=== PATIENT | female | born 1945 | race African-American/Black ===

== ENCOUNTER → 2016-07-22 | Outpatient (CLI) | payer MEDICARE, BC | LOC: RAD 08:27 | PROVIDERS: ATTEND Internal Medicine | DX: E04.9 Nontoxic goiter, unspecified (principal) | CPT/HCPCS: 78014; A9516 ==

== ENCOUNTER → 2017-01-15 | Outpatient (CLI) | payer MEDICARE, BC ==
--- NOTE | 2017-01-15 10:18 | RADIOLOGY REPORT (SQ) ---
EXAM DESCRIPTION: CT FACIAL AREA WITHOUT COMPLETED DATE/TIME: 01/15/2017 10:00 am REASON FOR STUDY: CHRONIC SINUSITIS (J32.9) J32.9 CHRONIC SINUSITIS, UNSPECIFIED COMPARISON: None. TECHNIQUE: Noncontrasted images through the facial bones and orbits windowed for bone and soft tissu e. Additional coronal and sagittal reconstructed images reviewed. All images stored on PACS. All CT scanners at this facility use dose modulation, iterative reconstruction, and/or weight based d osing when appropriate to reduce radiation dose to as low as reasonably achievable (ALARA). [facility]: Dose Right [facility]: CareDose [facility]: Dose Right [facility]: Teradose 4D [facility]: [employer] RADIATION DOSE: 44.2 mGy. LIMITATIONS: None. FINDINGS: FACIAL BONES: No fracture or bone lesion. ORBITS: Intact. No fracture. Symmetric intact globes and retroorbital soft tissues. PARANASAL SINUSES: Clear. No significant mucosal thickening, mass or fluid. No nasal polyps. Maxill criselda sinus outlets are patent. SOFT TISSUES: No mass or edema. INFERIOR BRAIN: Moderate chronic bifrontal deep periventricular white matter disease. OTHER: No other significant finding. IMPRESSION: NO ACUTE FINDINGS. TECHNICAL DOCUMENTATION: JOB ID: [id number] Quality ID # [id number]: Final reports with documentation of one or more dose reduction techniques (e.g., Au tomated exposure control, adjustment of the mA and/or kV according to patient size, use of iterative reconstruction technique) 2010 [employer]- All Rights Reserved
== END ==
LOC: RAD 09:38
PROVIDERS: ATTEND Internal Medicine
DX: J32.9 Chronic sinusitis, unspecified (principal)
CPT/HCPCS: 70486

== ENCOUNTER 2017-03-31 15:47 | Inpatient (IN) | payer MEDICARE, BC ==
--- NOTE | 2017-03-31 15:56 | ER Document Report ---
ED Neuro Symptoms/Deficit - General Mode of Arrival: Ambulatory Information source: Patient TRAVEL OUTSIDE OF THE [place] IN LAST 30 DAYS: No <MICHELLE AVILA - Last Filed: 03/31/17 18:11> <KEITH ACKERMAN - Last Filed: 03/31/17 20:19> - General Stated Complaint: GENERAL WEAKNESS Time Seen by Provider: 03/31/17 15:48 Notes: Patient is a 71 year old female that presents to the emergency department today with complaints of altered mental status. at bedside states that she complained of "not feeling well" at 0900 and she went and lied down in bed and this was her last known well. states that he was in and out of the room while she slept but did not notice any abnormalities until he tried to speak to her and she would not answer him. EMS reports no movement on the right side and that her right leg was hanging off the bed when they arrived. denies a history of seizures. History is limited. (MICHELLE AVILA) - Related Data Allergies/Adverse Reactions: cephalexin [Cephalexin] Allergy (Intermediate, Verified 04/24/14 17:57) Hallucinations codeine [Codeine] Allergy (Intermediate, Verified 04/24/14 17:57) itching promethazine HCl [From Phenergan] Allergy (Intermediate, Verified 04/24/14 17:57 ) itching,anxiousness Home Medications: Current Home Medications Rivaroxaban [Xarelto] 20 mg PO DAILY 03/31/17 [History] Valsartan/Hydrochlorothiazide [Valsartan-Hctz 320-25 mg Tab] 1 tab PO DAILY [History] Past Medical History - General Information source: Patient - Social History Smoking Status: Never Smoker Cigarette use (# per day): No Frequency of alcohol use: None Drug Abuse: None Lives with: Family Family History: Reviewed & Not Pertinent - Past Medical History Cardiac Medical History: Reports: Hx Atrial Fibrillation, Hx Congestive Heart Failure, Hx Coronary Artery Disease, Hx Heart Attack - VTACH AND ON GOING AFIB, Hx Hypertension - DIOVAN, LASIX GI Medical History: Reports: Hx Diverticulitis Past Surgical History: Reports: Hx Cardiac Catheterization, Hx Hysterectomy, Hx Pacemaker - Immunizations Immunizations up to date: Yes Hx Diphtheria, Pertussis, Tetanus Vaccination: Yes <MICHELLE AVILA - Last Filed: 03/31/17 18:11> Review of Systems - Review of Systems -: Yes ROS unobtainable due to patient's medical condition <MICHELLE AVILA - Last Filed: 03/31/17 18:11> Physical Exam - Vital signs Interpretation: Hypertensive - General General appearance: Alert In distress: Moderate - Respiratory Respiratory status: No respiratory distress Breath sounds: Normal - Cardiovascular Rhythm: Regular - Abdominal Inspection: Normal Tenderness: Nontender - Extremities General upper extremity: Normal inspection. No: Normal ROM, Normal strength General lower extremity: Normal inspection. No: Normal ROM, Normal strength - Neurological Neuro grossly intact: No Cranial nerves: Facial palsy, Gaze palsy Motor strength normal: No: RUE, RLE - Skin Skin Temperature: Warm Skin Moisture: Dry Skin Color: Normal <KEITH ACKERMAN - Last Filed: 03/31/17 20:19> - Vital signs Vitals: Resp Pulse Ox 20 100 03/31/17 16:00 03/31/17 16:00 Course - Laboratory Result Diagrams: 03/31/17 16:05 03/31/17 16:05 <MICHELLE AVILA - Last Filed: 03/31/17 18:11> - Laboratory Result Diagrams: 03/31/17 16:05 03/31/17 16:05 - Diagnostic Test Radiology reviewed: Reports reviewed <KEITH ACKERMAN - Last Filed: 03/31/17 20:19> - Re-evaluation Re-evalutation: 03/31/17 Patient is a 71-year-old female who presents with a aphasia and a right-sided paresis. Patient had gone to sleep and was not seen by her for about 6 hours. When he woke her up and realized that she needed to come to the ER. Patient is unable to speak and has a left gaze palsy although she is able to look straight ahead. She cannot look to the right. Patient is unable to move her right upper or lower extremity at all. Symptoms have not changed since she has been in the emergency department. Due to the severity of the patient's symptoms and also that she is outside the window for lytics, she is not a candidate for alteplase. Patient was discussed with her primary care doctor, Dr. Gonzáles, and will be admitted to the [facility]. This is discussed at length with her . (KEITH ACKERMAN) - Vital Signs Vital signs: Temp Pulse Resp BP Pulse Ox 98.0 F 78 14 160/97 H 96 03/31/17 19:10 03/31/17 18:00 03/31/17 19:09 03/31/17 19:09 03/31/17 19:09 - Laboratory Laboratory results interpreted by me: 03/31/17 03/31/17 03/31/17 16:05 16:05 16:05 RDW 14.3 H Seg Neutrophils % 78.8 H PT 19.0 H APTT 37.5 H Chloride 110 H Est GFR (Non-Af Amer) 49 L Glucose 116 H Critical Care Note - Critical Care Note Total time excluding time spent on procedures (mins): 35 - Evaluation and management of stroke patient, multiple re-evaluations, coordination of admission , counseling of family <KEITH ACKERMAN - Last Filed: 03/31/17 20:19> Discharge <MICHELLE AVILA - Last Filed: 03/31/17 18:11> - Discharge Admitting Provider: [facility] Unit Admitted: [facility] <KEITH ACKERMAN - Last Filed: 03/31/17 20:19> - Discharge Clinical Impression: CVA (cerebral vascular accident) Qualifiers: CVA mechanism: unspecified Qualified Code(s): I63.9 - Cerebral infarction, unspecified Condition: Stable Disposition: ADMITTED INPATIENT Scribe Attestation: 03/31/17 20:17 I personally performed the services described in the documentation, reviewed and edited the documentation which was dictated to the scribe in my presence, and it accurately records my words and actions. (KEITH ACKERMAN) Scribe Documentation - Scribe Written by Caitie:: Caitie Owusu, 03/31/2017 182 acting as scribe for :: Mary <MICHELLE AVILA - Last Filed: 03/31/17 18:11> ED Alteplase Inc/Exc Criteria - Inclusion Criteria: 1: Patient presented to ED within 3 hours of acute ischemic stroke symptom onset ? -: No 2: Did baseline CT exclude intracranial hemorrhage and/or other risk factors? -: No 3: Is the age of the patient 18 years of age or greater? -: Yes : If any of the above questions are answered "NO" then stop, patient is not a candidate for Alteplase, : If all of the above questions are answered "YES" then continue with Exclusion Criteria. - Exclusion Criteria: 1: Is there evidence of intracranial hemorrhage on baseline CT? 2: Is there suspicion of subarachnoid hemorrhage (even if CT negative)? -: No 3: Is there a history of serious head trauma, recent previous stroke or [place] within 3 months? -: No 4: Does the patient have a clinical presentation consistent with [place] or post-[place] pericarditis? -: No 5: Is there history of intracranial hemorrhage? -: No 6: On repeated measurement is Systolic BP greater than 185mmHg or Diastolic BP greater that 110 mmHg and is aggressive treatment needed to reduce blood pressure to these limits (e.g. constant infusion of an anti-hypertensive)? -: No - went down on own 7: Did the patient awake with stroke symptoms? -: Yes 8: Has the patient had a lumbar puncture or an arterial puncture at a non- compressile site within 7 days? -: No 9: With in the last 14 days did the patient have surgery or major trauma? -: No 10: Is the patient or less than 2 weeks? -: No 11: Was there any active bleeding or acute trauma? -: No 12: Does the patient have intracranial neoplasm, arteriovenous malformation or aneurysm? -: No 13: Does the patient have abnormal glucose (less than 50 or greater than 400mg/ dl)? Record glucose in Comment. -: No 14: Patient has rapidly improving symptoms at the time Alteplase is to be Administered. -: No 15: Does the patient have any risks for bleeding, including but not limited to: a.: Current use of Coumadin with PT greater than 15 seconds or INR greater than 1.7. b.: Current use of Pradaxa (Dabigatran). c.: Heparin administereed within the past 48 hours and PTT elevated. d.: Platelet count less than 100,000/mm. e.: Major surgery or serious trauma within 14 days. f.: Gastrointestinal or gynecological urinary bleeding within 14 days. g.: Myocardial Infarction ([place]) within 3 months. -: No : If the answer to any of the above questions is "YES" then stop, the patient is not a candidate for Alteplase. : If the answer to all of the above questions is "NO" then the patient may be eligible for the Administration of Alteplase. : If the patient is noted to have seizure activity at onset of Stroke symptoms; Consult Neurologist for further evaluation. - The patient is: -: Included and is eligible to receive Alteplase. *Initiate bed placement at higher level of care* --: No Reviewd risks & benefits of thrombolytic therapy: I have reviewed the risks and benefits of thrombolytic therapy with the patient and/or his/her family. -: Excluded and not eligible to receive Alteplase for the above exclusions. --: Yes - presented 6-7 hours, woke up with symptoms -: Excluded and not eligible to receive Alteplase for other reasons (specify in comments): - Diagnosis of TIA: -: Patient presented with transient symptoms that are now resolved and no other neurologic findings are currently present. List symptoms in comments. -: No -: Patient is NOT a candidate for tPA. -: Yes -: ____(put name in comment) has been consulted for admission and continued evaluation of risk factor assessment. <KEITH ACKERMAN - Last Filed: 03/31/17 20:19> ED NIH Stroke Scale - NIH Stroke Scale When completed:: Before Alteplase *: 1. NIH scale should be completed with appropriate accompanying assessment tools. *: 2. The NIH should reflect what the patient is capable of doing and should not be coached by the clinician. 1a. Level of Consciousness: 0=Alert;keenly responsive -: 1=Drowsy -: 2=Obtunded -: 3=Coma/unresponsive or reflex to noxious stimuli. 1a. Responses: 1 1b. Orientation Questions: a. What month is it? -: b. How old are you? -: 0=Answers both questions correctly. -: 1=Answers one question correctly or patient is intubated or has orotracheal trauma. -: 2=Answers neither question correctly. 1b. Responses: 2 1c. Response to commands: a. Open and close eyes? -: b. Laboratory Apparatus Glass Blower and release hand? -: Credit is given despite weakness. Demonstration of task is permitted. Substitute command if hands cannot be used. -: 0=Performs both tasks correctly -: 1=Performs one task correctly -: 2=Performs neither task correctly 1c. Responses: 0 2. Gaze: Establish eye contact and instruct patient to "Follow my finger" -: 0=Normal -: 1=Partial gaze palsy. Gaze is abnormal in one or both eyes, but where forced deviation or total gaze paresis is not present. -: 2=Forced deviation or total gaze paresis. 2. Responses: 2 3. Visual Coffman: Sees fingers in all four quadrants. -: 0=No visual loss. -: 1=Partial hemianopsia. -: 2=Complete hemianopsia. -: 3=Bilateral hemianopsia (including Cortical blindness) 4. Facial Movement: Instruct patient to: -: a. Show me your teeth -: b. Raise your eyebrows -: c. Close your eyes -: d. Smile -: 0=Normal symmetrical movement -: 1=Minor paralysis (flattened nasolabial fold, asymmetry on smiling). -: 2=Partial paralysis (total or near total paralysis of lower face). -: 3=Complete paralysis of upper and lower face 4. Responses: 3 5. Motor functions (left arm): Alternate sides and extend each arm with palms down (90 degrees if sitting or 45 degrees for supine). -: 0=No drift;limb holds for full 10 seconds. -: 1=Drift; limb holds but drifts down before full 10 seconds, but does not hit bed. -: 2=Some effort against gravity; limb cannot get to or maintain position. -: 3=No effort against gravity; limb falls. -: 4=No movement. -: UN=Amputation, joint fusion, explain in comments. 5. Responses (left arm): 3 5. Motor Functions (right arm): Alternate sides and extend each arm with palms down (90 degrees if sitting or 45 degrees for supine). -: 0=No drift;limb holds for full 10 seconds. -: 1=Drift; limb holds but drifts down before full 10 seconds, but does not hit bed. -: 2=Some effort against gravity; limb cannot get to or maintain position. -: 3=No effort against gravity; limb falls. -: 4=No movement. -: UN=Amputation, joint fusion, explain in comments. 5. Responses (right arm): 4 6. Motor Functions (left leg): With patient lying supine, alternate sides and extend each leg (30 degrees always while supine). -: 0=No drift, leg holds position for full 5 seconds -: 1=Drift; leg falls before full 5 seconds but does not hit bed. -: 2=Some effort against gravity, leg falls to bed but some effort against gravity. -: 3=No effort against gravity, leg falls to bed immediately. -: 4=No movement. -: UN=Amputation, joint fusion; explain in comments. 6. Responses (left leg): 2 6. Motor Functions (right leg): With patient lying supine, alternate sides and extend each leg (30 degrees always while supine). -: 0=No drift, leg holds position for full 5 seconds -: 1=Drift; leg falls before full 5 seconds but does not hit bed. -: 2=Some effort against gravity, leg falls to bed but some effort against gravity. -: 3=No effort against gravity, leg falls to bed immediately. -: 4=No movement. -: UN=Amputation, joint fusion; explain in comments. 6. Responses (right leg): 4 7. Limb Ataxia: With eyes open instruct patient to: -: a. "Touch your finger to your nose". -: b. "Touch your heel to your gardner" -: 0=Absent -: 1=Present in one limb. -: 2=Present in two limbs. -: UN=Amputation or joint fusion; explain in comments. 7. Responses: 2 7. If ataxia present choose as appropriate: Right arm, Right leg 8. Sensory: Test sensation using pinprick or noxious stimuli. Test as many body parts as possible. -: 0=Normal;no sensory loss -: 1=Mile to moderate sensory loss (patient feels pin prick but is less sharp on affected side). -: 2=Severe or total sensory loss. 9. Best Language: Instruct patient to: -: a. "Describe what you see in this picture." -: b. "Name the items in this picture." -: c. "Read these sentences." -: 0=No aphasia, normal -: 1=Mild to moderate aphasia. -: 2=Severe aphasia -: 3=Mute, global aphasia, no usable speech or auditory comprehension. 9. Responses: 3 10. Articulation, Dysarthia: Instruct patient to: -: "Read these words" or "Repeat these words" -: 0=Normal -: 1=Mild to moderate; patient may slur some words but can be understood without difficulty. -: 2=Severe; patients speech so slurred as to be unintelligible in the absence of dysphasia. -: UN=Intubated or other physical barrier, explain in comments. 10. Responses: 2 11. Extinction or inattention: 0=No abnormality -: 1= Visual, tactile, auditory, spatial, or personal inattention or extinction to bilateral simulation in one or the sensory modalities. -: 2=Profound shravan-inattention or shravan-inattention to more than one modality; does not recognize own hand. Total Score: 28 <KEITH ACKERMAN - Last Filed: 03/31/17 20:19>
--- NOTE | 2017-03-31 16:15 | RADIOLOGY REPORT (SQ) ---
EXAM DESCRIPTION: CT HEAD WITHOUT COMPLETED DATE/TIME: 03/31/2017 3:57 pm REASON FOR STUDY: AMS, L gaze COMPARISON: 08/15/2015 TECHNIQUE: Axial images acquired through the brain without intravenous contrast. Images reviewed wi th bone, brain and subdural windows. Images stored on PACS. All CT scanners at this facility use dose modulation, iterative reconstruction, and/or weight based d osing when appropriate to reduce radiation dose to as low as reasonably achievable (ALARA). [facility]: Dose Right [facility]: CareDose [facility]: Dose Right [facility]: Teradose 4D [facility]: [employer] RADIATION DOSE: mGy. LIMITATIONS: None. FINDINGS: VENTRICLES: Prominent. CEREBRUM: No masses. No hemorrhage. No midline shift. Old lacunar infarct left basal ganglia. Are as of low density in the white matter most likely due to chronic micro-vascular ischemic change. No evidence for acute infarction. CEREBELLUM: No masses. No hemorrhage. No alteration of density. No evidence for acute infarction. EXTRAAXIAL SPACES: Mild age-related involutional change. No fluid collections. No masses. ORBITS AND GLOBE: No intra- or extraconal masses. Normal contour of globe without masses. CALVARIUM: No fracture. PARANASAL SINUSES: No fluid or mucosal thickening. SOFT TISSUES: No mass or hematoma. OTHER: No other significant finding. IMPRESSION: No acute abnormality brain. EVIDENCE OF ACUTE STROKE: NO. TECHNICAL DOCUMENTATION: JOB ID: [id number] Quality ID # [id number]: Final reports with documentation of one or more dose reduction techniques (e.g., Au tomated exposure control, adjustment of the mA and/or kV according to patient size, use of iterative reconstruction technique) 2010 [employer] All Rights Reserved
--- NOTE | 2017-03-31 16:15 | RADIOLOGY REPORT (SQ) ---
EXAM DESCRIPTION: CHEST SINGLE VIEW COMPLETED DATE/TIME: 03/31/2017 3:58 pm REASON FOR STUDY: AMS COMPARISON: August 2015 EXAM PARAMETERS: NUMBER OF VIEWS: One view. TECHNIQUE: Single frontal radiographic view of the chest acquired. RADIATION DOSE: NA LIMITATIONS: None. FINDINGS: LUNGS AND PLEURA: No opacities, masses or pneumothorax. No pleural effusion. MEDIASTINUM AND HILAR STRUCTURES: No masses. Contour normal. HEART AND VASCULAR STRUCTURES: Cardiac silhouette is enlarged and unchanged in configuration. BONES: No acute findings. HARDWARE: AICD device is unchanged in position. OTHER: No other significant finding. IMPRESSION: No significant interval change. No acute findings. Other findings as noted above TECHNICAL DOCUMENTATION: JOB ID: [id number]
[2017-03-31 16:25] LABS: ABSOLUTE EOSINOPHILS # (AUTO) 0.1 10^3/uL (0.0-0.6); ABSOLUTE LYMPHOCYTES (AUTO) 1.2 10^3/uL (0.5-4.7); ABSOLUTE MONOCYTES (AUTO) 0.4 10^3/uL (0.1-1.4); ABSOLUTE NEUT (AUTO) 6.5 10^3/uL (1.7-8.2); BASOPHILS % (AUTO) 0.5 % (0-2); EOSINOPHILS % (AUTO) 1.6 % (0-6); HEMATOCRIT 40.9 % (36.0-47.0); HEMOGLOBIN 13.9 g/dL (12.0-15.5); HGB HCT DIFFERENCE 0.8; LYMPHOCYTES % (AUTO) 14.7 % (13-45); MEAN CORPUSCULAR HEMOGLOBIN 29.8 pg (27.0-33.4); MEAN CORPUSCULAR VOLUME 88 fl (80-97); MONOCYTES % (AUTO) 4.4 % (3-13); RED BLOOD COUNT 4.66 10^6/uL (3.72-5.28); RED CELL DISTRIBUTION WIDTH 14.3 % (11.5-14.0); SEGMENTED NEUTROPHILS % (AUTO) 78.8 % (42-78); WHITE BLOOD COUNT 8.3 10^3/uL (4.0-10.5)
[2017-03-31 16:27] LABS: PARTIAL THROMBOPLASTIN TIME 37.5 SEC (23.5-35.8)
[2017-03-31 16:33] LABS: ALANINE AMINOTRANSFERASE 13 U/L (9-52); ALBUMIN 4.1 g/dL (3.5-5.0); ALKALINE PHOSPHATASE 96 U/L (38-126); ANION GAP 12 (5-19); ASPARTATE AMINO TRANSFERASE 19 U/L (14-36); BILIRUBIN,DIRECT 0.4 mg/dL (0.0-0.4); BILIRUBIN,TOTAL 0.7 mg/dL (0.2-1.3); BLOOD UREA NITROGEN 12 mg/dL (7-20); CALCIUM 9.9 mg/dL (8.4-10.2); CARBON DIOXIDE 22 mmol/L (22-30); CHLORIDE 110 mmol/L (98-107); CREATINE KINASE 75 U/L (30-135); CREATININE RESULT 1.09 mg/dL (0.52-1.25); GLUCOSE 116 mg/dL (75-110); POTASSIUM 4.2 mmol/L (3.6-5.0); SODIUM 143.5 mmol/L (137-145); TOTAL PROTEIN 7.9 g/dL (6.3-8.2)
[2017-03-31 16:45] LABS: CREATINE KINASE MB 1.79 ng/mL (<4.55)
[2017-03-31 17:01] LABS: TROPONIN I 0.046 ng/mL
--- NOTE | 2017-03-31 17:36 | EKG REPORT ---
SEVERITY:- ABNORMAL ECG - A-V DUAL-PACED COMPLEXES W/ SOME INHIBITION : Confirmed by: Bea Ochoa MD 31-Mar-2017 17:34:19
[2017-03-31 20:22] LABS: APPEARANCE,URINE CLEAR; BILIRUBIN,URINE NEGATIVE (NEGATIVE); GLUCOSE, URINE NEGATIVE (NEGATIVE); KETONES,URINE TRACE mg/dL (NEGATIVE); LEUKOCYTE ESTERASE,URINE NEGATIVE (NEGATIVE); NITRITE,URINE NEGATIVE (NEGATIVE); PROTEIN,URINE 30 mg/dL (NEGATIVE)
[2017-03-31] MEDS ORDERED: INFLUENZA ADLT QUAD (36MOS+) 2017-18 VAC 0.5 ML SYR IM PRN (20:50)
[2017-03-31] MEDS: ASPIRIN/DIPYRIDAMOLE 25-200 MG 1 CAP.SR CPMP.12HR PO SCH (21:50)
[2017-03-31] MEDS: HEPARIN SOD (PORCINE) 5,000 UNIT/ML 1 ML SYRINGE SUBCUT SCH (21:50)
[2017-04-01 00:52] LABS: CREATINE KINASE MB 1.37 ng/mL (<4.55); TROPONIN I 0.043 ng/mL
[2017-04-01] MEDS: HEPARIN SOD (PORCINE) 5,000 UNIT/ML 1 ML SYRINGE SUBCUT SCH ×3 (05:22→21:42)
[2017-04-01 07:08] LABS: CHOLESTEROL 188.89 mg/dL (0-200); CREATINE KINASE 72 U/L (30-135); Direct HDL 49 mg/dL (>40); TRIGLYCERIDES 60 mg/dL (<150)
[2017-04-01 07:18] LABS: DIRECT LDL 122 mg/dL (<100)
[2017-04-01 07:21] LABS: CREATINE KINASE MB 1.22 ng/mL (<4.55); TROPONIN I 0.048 ng/mL
[2017-04-01] MEDS: ASPIRIN/DIPYRIDAMOLE 25-200 MG 1 CAP.SR CPMP.12HR PO SCH ×2 (09:25→21:42)
--- NOTE | 2017-04-01 12:17 | RADIOLOGY REPORT (SQ) ---
EXAM DESCRIPTION: CAROTID DOPPLER COMPLETED DATE/TIME: 04/01/2017 12:04 pm REASON FOR STUDY: cva COMPARISON: None. TECHNIQUE: Grayscale ultrasound, Doppler velocity and spectra, and color Doppler images acquired of the extra-cranial carotid and vertebral arteries. Images stored on PACS. LIMITATIONS: None. FINDINGS: RIGHT CAROTID CCA Velocities: 65 cm/s ICA Velocities Peak systolic 80cm/s. End diastolic 23cm/s. Proximal ICA/CCA peak systolic ratio 1.2. Spectra normal. No significant plaque. LEFT CAROTID CCA Velocities: 83 cm/s ICA Velocities Peak systolic 74cm/s. End diastolic 12cm/s. Proximal ICA/CCA peak systolic ratio 0.9. Spectra normal. No significant plaque. VERTEBRAL ARTERIES: Antegrade flow. Normal waveforms. SUBCLAVIAN ARTERIES: No finding. OTHER: No other significant finding. IMPRESSION: NO HEMODYNAMICALLY SIGNIFICANT STENOSIS. COMMENT: Quality ID #[id number]: Velocity criteria are extrapolated from the diameter data as defined by t [place] Society of Radiologists in Ultrasound Consensus Conference. Radiology 2003: 229; 340-346. TECHNICAL DOCUMENTATION: JOB ID: [id number] [email or web address]- All Rights Reserved
[2017-04-01 14:31] LABS: CREATINE KINASE MB 1.15 ng/mL (<4.55); TROPONIN I 0.043 ng/mL
--- NOTE | 2017-04-01 19:59 | XCELERA REPORT ---
[address] [address] Transthoracic Echocardiogram Report Name: JONATHAN MILNER Age: 71 yrs Gender: Female : 1945 Patient Status: Inpatient Patient Location: [address] [place] [address] Study Date: 04/01/2017 10:00 AM Height: 64 in Weight: 190 lb BSA: 1.9 m2 Procedure: A complete two-dimensional transthoracic echocardiogram was performed (2D, M-mode, spectral and color flow Doppler). The study was technically adequate with some images being suboptimal in quality. Reason For Study: cva Ordering Physician: JACKELINE GUTIERREZ Performed By: Desiree Ramsey Interpretation Summary The left ventricular ejection fraction is normal. There is moderate to severe concentric left ventricular hypertrophy. The left ventricle is grossly normal size. Doppler measurements suggest reversible restrictive left ventricular relaxation, which is associated with grade III/IV or moderate diastolic dysfunction Wall motion cannot be accurately commented on, but no definite regional wall motion abnormalities noted. The right ventricular systolic function is normal. The left atrium is moderately dilated. The right atrium is normal in size There is a moderate amount of mitral regurgitation There is no mitral valve stenosis. No aortic regurgitation is present. There is no aortic valve stenosis There is a trace to mild amount of tricuspid regurgitation There is moderate to severe pulmonary hypertension by echo Right ventricular systolic pressure is estimated to be elevated at 50- 60mmHg. The aortic root is not well visualized. The inferior vena cava appeared normal and decreased < 50% with respiration (RAP 10-15 mmHg) Minimal pericardial effusion. MMode/2D Measurements & Calculations RVDd: 2.3 cm LVIDd: 2.7 cm FS: 24.5 % Ao root diam: 2.6 cm IVSd: 2.0 cm LVIDs: 2.0 cm EDV(Teich): 25.8 ml LVPWd: 1.7 cm ESV(Teich): 12.8 ml Ao root area: 5.2 cm2 EF(Teich): 50.6 % Doppler Measurements & Calculations MV E max nadia: MV dec slope: Ao V2 max: LV V1 max P.8 cm/sec 87.0 cm/sec 4.0 mmHg MV A max nadia: 898.7 cm/sec2 Ao max PG: LV V1 max: 37.3 cm/sec MV dec time: 3.0 mmHg 99.6 cm/sec MV E/A: 3.3 0.14 sec MR max nadia: PA V2 max: PI end-d nadia: TR max nadia: 553.7 cm/sec 67.0 cm/sec 115.3 cm/sec 363.0 cm/sec MR max PG: PA max P.8 mmHg TR max P.7 mmHg 52.7 mmHg Left Ventricle The left ventricle is grossly normal size. There is moderate to severe concentric left ventricular hypertrophy. The left ventricular ejection fraction is normal. Doppler measurements suggest reversible restrictive left ventricular relaxation, which is associated with grade III/IV or moderate diastolic dysfunction. Wall motion cannot be accurately commented on, but no definite regional wall motion abnormalities noted. Right Ventricle The right ventricle is grossly normal size. There is normal right ventricular wall thickness. The right ventricular systolic function is normal. Atria The right atrium is normal in size. The left atrium is moderately dilated. Interarterial septum not well visualized and not well dopplered. Cannot comment on ASD/PFO presence. Mitral Valve The mitral valve leaflets are sclerotic, but show no functional abnormalities. There is no mitral valve stenosis. There is a moderate amount of mitral regurgitation. Aortic Valve The aortic valve is not well visualized secondary to technical limitations. There is no aortic valve stenosis. No aortic regurgitation is present. Tricuspid Valve The tricuspid valve is not well visualized secondary to technical limitations. There is no tricuspid stenosis. There is a trace to mild amount of tricuspid regurgitation. There is moderate to severe pulmonary hypertension by echo. Right ventricular systolic pressure is estimated to be elevated at 50-60mmHg. Pulmonic Valve The pulmonic valve is not well visualized. Great Vessels The aortic root is not well visualized. The inferior vena cava appeared normal and decreased < 50% with respiration (RAP 10-15 mmHg). Effusions Minimal pericardial effusion. : JACKELINE GUTIERREZ > Tata Starr
--- NOTE | 2017-04-01 20:18 | EKG REPORT ---
SEVERITY:- ABNORMAL ECG - ATRIAL-VENTRICULAR DUAL-PACED RHYTHM : Confirmed by: Bea Ochoa MD 01-Apr-2017 20:17:36
--- NOTE | 2017-04-01 21:48 | PDOC H&P ---
History of Present Illness Admission Date/PCP: 03/31/17 22:58 JACKELINE GUTIERREZ MD History of Present Illness: JONATHAN MILNER is a 71 year old femaleShe is well-known to me she has a history of hypertension for many years, she also have cardiac arrhythmias, inducible ventricular tachycardia she is on anticoagulant, Xarelto status post AICD/pacemaker implantation. She was brought to the emergency room for evaluation of altered mental status by spouse. The history was that patient went to bed to rest because she was tired but subsequently she does not respond to verbal commands, the was worried he called rescue squad and she was transferred to the emergency room for evaluation. In the emergency room when she arrived she was found to have right-sided paralysis with left facial neglect initial CT head that was done was negative for any acute infarct.as expected . MRI brain could not be done because she has a pacemaker/ AICD implantation. She was admitted and managed according to stroke protocol , a 2D echo was done that showed moderate to severe concentric LVH, dilated left atrium grade 3 diastolic dysfunction of left ventricle pulmonary hypertension this suggest that her blood pressure is not well controlled.She is not a candidate for TPA treatment she presented outside the three-hour window of onset of symptoms of stroke.Clinically the stroke suggest a large stroke, the initial 72 hours is very critical in this patient because cerebral edema tends to occur within 772 hours of onset of stroke Past Medical History Cardiac Medical History: Reports: Atrial Fibrillation, Hypertension, Other - Cardiac dysrhythmia GI Medical History: Reports: Diverticulitis Hematology: Reports: Bleeding Tendencies - Angiodysplasia of the colon and small intestine Past Surgical History Past Surgical History: Reports: Cardiac Catheterization, Hysterectomy, Internal Defibrillator, Pacemaker Social History Lives with: Family Smoking Status: Never Smoker Frequency of Alcohol Use: None Hx Recreational Drug Use: No Drugs: None Hx Prescription Drug Abuse: No - Advance Directive Resuscitation Status: Full Code Family History Family History: Reviewed & Not Pertinent Parental Family History Reviewed: Yes Children Family History Reviewed: Yes Sibling(s) Family History Reviewed.: Yes Medication/Allergy Home Medications: Rivaroxaban [Xarelto] 20 mg PO DAILY 03/31/17 Valsartan/Hydrochlorothiazide [Valsartan-Hctz 320-25 mg Tab] 1 tab PO DAILY Allergies/Adverse Reactions: cephalexin [Cephalexin] Allergy (Intermediate, Verified 04/24/14 17:57) Hallucinations codeine [Codeine] Allergy (Intermediate, Verified 04/24/14 17:57) itching promethazine HCl [From Phenergan] Allergy (Intermediate, Verified 04/24/14 17:57 ) itching,anxiousness Review of Systems ROS unobtainable: Due to mental status Physical Exam Vital Signs: Temp Pulse Resp BP Pulse Ox 97.4 F 73 16 148/89 H 98 04/01/17 19:51 04/01/17 20:00 04/01/17 20:00 04/01/17 20:00 04/01/17 20:00 Intake & Output 03/31/17 04/01/17 04/02/17 06:59 06:59 06:59 Intake Total 6 6 Output Total 325 400 Balance -319 -394 Weight 78.3 kg Head exam: PRESENT: atraumatic, normocephalic, other - Left facial droop with left eye neglect Eye exam: PRESENT: conjunctiva pink, EOMI, PERRLA. ABSENT: scleral icterus Respiratory exam: PRESENT: clear to auscultation cally Cardiovascular exam: PRESENT: RRR, +S1, +S2 Vascular exam: PRESENT: normal capillary refill GI/Abdominal exam: PRESENT: soft Rectal exam: PRESENT: deferred Neurological exam: PRESENT: altered, motor sensory deficit - Right sided hemiplegia Results Laboratory Results: 04/01/17 06:43 04/01/17 04/01/17 05:59 06:43 Chloride Cancelled Triglycerides Cancelled 60 Cholesterol Cancelled 188.89 LDL Cholesterol Direct Cancelled 122 H VLDL Cholesterol Cancelled 12.0 HDL Cholesterol Cancelled 49 04/01/17 04/01/17 04/01/17 00:11 00:11 05:59 Creatine Kinase 71 Cancelled CK-MB (CK-2) 1.37 Troponin I 0.043 04/01/17 04/01/17 04/01/17 05:59 06:43 06:43 Creatine Kinase 72 CK-MB (CK-2) Cancelled 1.22 Troponin I Cancelled 0.048 04/01/17 04/01/17 13:11 13:11 Creatine Kinase 78 CK-MB (CK-2) 1.15 Troponin I 0.043 Impressions: Chest X-Ray 03/31/17 15:49 IMPRESSION: No significant interval change. No acute findings. Other findings as noted above Head CT 03/31/17 15:49 IMPRESSION: No acute abnormality brain. EVIDENCE OF ACUTE STROKE: NO. Carotid Doppler Study 04/01/17 00:00 IMPRESSION: NO HEMODYNAMICALLY SIGNIFICANT STENOSIS. Assessment & Plan - Diagnosis (1) Hemiplegia and hemiparesis following cerebral infarction affecting right dominant side Is this a current diagnosis for this admission?: Yes Plan: She has cerebral infarction with right-sided paralysis, the blood pressure is elevated she will not be treated at this point with antihypertensive drug unless the systolic blood pressure is more than or equal to 220 .she failed the initial swallow screen, she be kept n.p.o. for now. A repeat CT head will be done in 48 hours the plan of care was discussed with family (2) Hypertensive heart disease Qualifiers: Heart failure presence: without heart failure Qualified Code(s): I11.9 - Hypertensive heart disease without heart failure Is this a current diagnosis for this admission?: Yes (3) Diastolic heart failure Qualifiers: Heart failure chronicity: chronic Qualified Code(s): I50.32 - Chronic diastolic (congestive) heart failure Is this a current diagnosis for this admission?: Yes
[2017-04-02] MEDS: HEPARIN SOD (PORCINE) 5,000 UNIT/ML 1 ML SYRINGE SUBCUT SCH ×3 (05:41→21:23)
--- NOTE | 2017-04-02 08:46 | RADIOLOGY REPORT (SQ) ---
EXAM DESCRIPTION: CT HEAD WITHOUT COMPLETED DATE/TIME: 04/02/2017 8:32 am REASON FOR STUDY: CVA PROGRESSION COMPARISON: 03/31/2017 TECHNIQUE: Axial images acquired through the brain without intravenous contrast. Images reviewed wi th bone, brain and subdural windows. Images stored on PACS. All CT scanners at this facility use dose modulation, iterative reconstruction, and/or weight based d osing when appropriate to reduce radiation dose to as low as reasonably achievable (ALARA). [facility]: Dose Right [facility]: CareDose [facility]: Dose Right [facility]: Teradose 4D [facility]: [employer] RADIATION DOSE: Up-to-date CT equipment and radiation dose reduction techniques were employed. CTDIv ol: 49.0 mGy. DLP: 881 mGy-cm. mGy. LIMITATIONS: None. FINDINGS: VENTRICLES: There is displacement of the lateral ventricles from left to right with compre ssion of the left lateral ventricle. CEREBRUM: There has been interval development of a large area of relative decreased density involving the left cerebral hemisphere consistent with an area of cerebral infarction in a left MCA distributi on. Mass effect is seen with shift of the midline structures from left to right. No hemorrhagic comp onent is identified. CEREBELLUM: No masses. No hemorrhage. No alteration of density. No evidence for acute infarction. EXTRAAXIAL SPACES: No fluid collections. No masses. ORBITS AND GLOBE: No intra- or extraconal masses. Normal contour of globe without masses. CALVARIUM: No fracture. PARANASAL SINUSES: No fluid or mucosal thickening. SOFT TISSUES: No mass or hematoma. OTHER: No other significant finding. IMPRESSION: Interval development of a large area of relative decreased density as noted above consis tent with an area of cerebral infarction and a left MCA distribution. Mass effect is seen with compr ession of the left lateral ventricle and shift of the midline structures from left to right. No hemo rrhagic component is identified. Other findings as noted above. EVIDENCE OF ACUTE STROKE: NO. COMMENT: Quality ID # [id number]: Final reports with documentation of one or more dose reduction techniques (e.g., Automated exposure control, adjustment of the mA and/or kV according to patient size, use of iterative reconstruction technique) TECHNICAL DOCUMENTATION: JOB ID: [id number] [employer]- All Rights Reserved
[2017-04-02] MEDS: ASPIRIN/DIPYRIDAMOLE 25-200 MG 1 CAP.SR CPMP.12HR PO SCH ×2 (11:10→21:09)
[2017-04-02] MEDS: LABETALOL HCL INJ 20 MG/4 ML DISP.SYRIN IV PRN ×2 (12:22→21:09)
[2017-04-02 15:06] LABS: HEMATOCRIT 47.5 % (36.0-47.0); MEAN CORPUSCULAR HEMOGLOBIN 29.8 pg (27.0-33.4); MEAN CORPUSCULAR HGB CONC 34.7 g/dL (32.0-36.0); MEAN CORPUSCULAR VOLUME 86 fl (80-97); RED BLOOD COUNT 5.52 10^6/uL (3.72-5.28); RED CELL DISTRIBUTION WIDTH 13.7 % (11.5-14.0); WHITE BLOOD COUNT 14.6 10^3/uL (4.0-10.5)
[2017-04-02 15:10] LABS: HEMOGLOBIN 16.5 g/dL (12.0-15.5)
[2017-04-02 15:59] LABS: ANION GAP 18 (5-19); BLOOD UREA NITROGEN 18 mg/dL (7-20); CALCIUM 9.9 mg/dL (8.4-10.2); CARBON DIOXIDE 15 mmol/L (22-30); CHLORIDE 106 mmol/L (98-107); CREATININE RESULT 0.97 mg/dL (0.52-1.25); GLUCOSE 115 mg/dL (75-110); POTASSIUM 4.6 mmol/L (3.6-5.0); SODIUM 139.3 mmol/L (137-145)
--- NOTE | 2017-04-02 17:53 | PDOC PROGRESS REPORT ---
Subjective Progress Note for:: 04/02/17 Subjective:: She was seen by the bedside CAT scan of the head was done today it showed interval development of a large area of relative decreased density involving the left cerebral hemisphere consistent with an area of cerebral infarction in the left MCA territory/distribution mass-effect is seen with shift of the midline structures from left to right there is no hemorrhagic component identified. This finding was discussed with the family including his spouse and daughter, she has a living will, she be made a DNR status, prognosis is very poor in this patient Physical Exam Vital Signs: Temp Pulse Resp BP Pulse Ox 97.6 F 86 18 159/121 H 97 04/02/17 16:10 04/02/17 16:10 04/02/17 16:10 04/02/17 16:10 04/02/17 16:10 Intake & Output 04/01/17 04/02/17 04/03/17 06:59 06:59 06:59 Intake Total 6 6 Output Total 325 950 200 Balance -319 -944 -200 Weight 78.3 kg 81.3 kg 81.3 kg Eye exam: PRESENT: other - The pupil is medium-sized Mouth exam: PRESENT: moist, tongue midline Neck exam: PRESENT: full ROM Respiratory exam: PRESENT: clear to auscultation cally Cardiovascular exam: PRESENT: RRR, +S1, +S2 Vascular exam: PRESENT: normal capillary refill GI/Abdominal exam: PRESENT: soft Rectal exam: PRESENT: deferred Neurological exam: PRESENT: altered, motor sensory deficit - There is right sided hemiplegia Skin exam: PRESENT: dry, intact, warm Results Laboratory Results: 04/02/17 14:57 04/02/17 15:40 04/02/17 04/02/17 04/02/17 14:57 14:57 15:40 WBC 14.6 H RBC 5.52 H Hgb 16.5 H D Hct 47.5 H MCV 86 MCH 29.8 MCHC 34.7 RDW 13.7 Plt Count 188 Sodium Cancelled 139.3 Potassium Cancelled 4.6 Chloride Cancelled 106 Carbon Dioxide Cancelled 15 L Anion Gap Cancelled 18 BUN Cancelled 18 Creatinine Cancelled 0.97 Est GFR ( Amer) Cancelled > 60 Est GFR (Non-Af Amer) Cancelled 57 L Glucose Cancelled 115 H Calcium Cancelled 9.9 04/01/17 04/01/1704/01/17 00:11 00:11 05:59 Creatine Kinase 71 Cancelled CK-MB (CK-2) 1.37 Troponin I 0.043 04/01/17 04/01/17 04/01/17 05:59 06:43 06:43 Creatine Kinase 72 CK-MB (CK-2) Cancelled 1.22 Troponin I Cancelled 0.048 04/01/17 04/01/17 13:11 13:11 Creatine Kinase 78 CK-MB (CK-2) 1.15 Troponin I 0.043 Impressions: Chest X-Ray 03/31/17 15:49 IMPRESSION: No significant interval change. No acute findings. Other findings as noted above Carotid Doppler Study 04/01/17 00:00 IMPRESSION: NO HEMODYNAMICALLY SIGNIFICANT STENOSIS. Head CT 04/02/17 00:00 IMPRESSION: Interval development of a large area of relative decreased density as noted above consistent with an area of cerebral infarction and a left MCA distribution. Mass effect is seen with compression of the left lateral ventricle and shift of the midline structures from left to right. No hemorrhagic component is identified. Other findings as noted above. EVIDENCE OF ACUTE STROKE: NO. Assessment & Plan - Diagnosis (1) Left acute arterial ischemic stroke, MCA (middle cerebral artery) Is this a current diagnosis for this admission?: Yes Plan: She has a large left acute MCA infarct with mass-effect, very poor prognosis, tube feeding is not an option. (2) Hemiplegia and hemiparesis following cerebral infarction affecting right dominant side Is this a current diagnosis for this admission?: Yes (3) Hypertensive heart disease Qualifiers: Heart failure presence: without heart failure Qualified Code(s): I11.9 - Hypertensive heart disease without heart failure Is this a current diagnosis for this admission?: Yes (4) Diastolic heart failure Qualifiers: Heart failure chronicity: chronic Qualified Code(s): I50.32 - Chronic diastolic (congestive) heart failure Is this a current diagnosis for this admission?: Yes
[2017-04-03] MEDS: LABETALOL HCL INJ 20 MG/4 ML DISP.SYRIN IV PRN ×3 (03:42→22:08)
[2017-04-03] MEDS: HEPARIN SOD (PORCINE) 5,000 UNIT/ML 1 ML SYRINGE SUBCUT SCH ×3 (05:57→22:08)
[2017-04-03] MEDS: ASPIRIN/DIPYRIDAMOLE 25-200 MG 1 CAP.SR CPMP.12HR PO SCH ×2 (09:09→22:41)
--- NOTE | 2017-04-03 09:55 | PDOC PROGRESS REPORT ---
Subjective Progress Note for:: 04/03/17 Subjective:: Patient is currently doing same. Patient is unresponsive. Patients came with the MCA stroke with the midline shift of the brain. Patient's spouse and the daughters and the bedside discussed with the poor prognosis patient's currently is a DNR and DNI Physical Exam Vital Signs: Temp Pulse Resp BP Pulse Ox 99.2 F 95 22 H 210/104 H 95 04/03/17 07:43 04/03/17 07:43 04/03/17 04:00 04/03/17 04:00 04/03/17 07:43 Intake & Output 04/02/17 04/03/17 04/04/17 06:59 06:59 06:59 Intake Total 6 21 Output Total 950 425 Balance -944 -404 Weight 81.3 kg 80.7 kg Physical Exam: Patient is not responding General appearance: PRESENT: no acute distress Head exam: PRESENT: normocephalic Eye exam: PRESENT: PERRLA Neck exam: ABSENT: JVD Respiratory exam: PRESENT: clear to auscultation cally Cardiovascular exam: PRESENT: +S1, +S2 GI/Abdominal exam: PRESENT: normal bowel sounds, soft Extremities exam: ABSENT: pedal edema Neurological exam: PRESENT: altered Additional comments: Able to do the full exam because of not responding Results Laboratory Results: 04/02/17 14:57 04/02/17 15:40 04/02/17 04/02/17 04/02/17 14:57 14:57 15:40 WBC 14.6 H RBC 5.52 H Hgb 16.5 H D Hct 47.5 H MCV 86 MCH 29.8 MCHC 34.7 RDW 13.7 Plt Count 188 Sodium Cancelled 139.3 Potassium Cancelled 4.6 Chloride Cancelled 106 Carbon Dioxide Cancelled 15 L Anion Gap Cancelled 18 BUN Cancelled 18 Creatinine Cancelled 0.97 Est GFR ( Amer) Cancelled > 60 Est GFR (Non-Af Amer) Cancelled 57 L Glucose Cancelled 115 H Calcium Cancelled 9.9 04/01/17 04/01/17 04/01/17 00:11 00:11 05:59 Creatine Kinase 71 Cancelled CK-MB (CK-2) 1.37 Troponin I 0.043 04/01/17 04/01/17 04/01/17 05:59 06:43 06:43 Creatine Kinase 72 CK-MB (CK-2) Cancelled 1.22 Troponin I Cancelled 0.048 04/01/17 04/01/17 13:11 13:11 Creatine Kinase 78 CK-MB (CK-2) 1.15 Troponin I 0.043 Impressions: Chest X-Ray 03/31/17 15:49 IMPRESSION: No significant interval change. No acute findings. Other findings as noted above Carotid Doppler Study 04/01/17 00:00 IMPRESSION: NO HEMODYNAMICALLY SIGNIFICANT STENOSIS. Head CT 04/02/17 00:00 IMPRESSION: Interval development of a large area of relative decreased density as noted above consistent with an area of cerebral infarction and a left MCA distribution. Mass effect is seen with compression of the left lateral ventricle and shift of the midline structures from left to right. No hemorrhagic component is identified. Other findings as noted above. EVIDENCE OF ACUTE STROKE: NO. Assessment & Plan - Diagnosis (1) CVA (cerebral vascular accident) Qualifiers: CVA mechanism: unspecified Qualified Code(s): I63.9 - Cerebral infarction, unspecified Is this a current diagnosis for this admission?: Yes Plan: With the patient have a brain swelling in the midline sift continue supportive measurements. Discussed with the patient's family patient is currently a DNR/ DNI will repeat the CT of the head in the morning (2) Hemiplegia and hemiparesis following cerebral infarction affecting right dominant side Is this a current diagnosis for this admission?: Yes (3) Hypertensive heart disease Qualifiers: Heart failure presence: without heart failure Qualified Code(s): I11.9 - Hypertensive heart disease without heart failure Is this a current diagnosis for this admission?: Yes Plan: Continues to as needed labetalol - Time Time Spent with patient: 15-24 minutes Medications reviewed and adjusted accordingly: Yes Anticipated discharge: Other Within: Other - Inpatient Certification Medical Necessity: Need Close Monitoring Due to Risk of Patient Decompensation Post Hospital Care: D/C 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
[2017-04-04] MEDS: HEPARIN SOD (PORCINE) 5,000 UNIT/ML 1 ML SYRINGE SUBCUT SCH ×3 (05:18→22:16)
--- NOTE | 2017-04-04 09:20 | RADIOLOGY REPORT (SQ) ---
EXAM DESCRIPTION: CT HEAD WITHOUT COMPLETED DATE/TIME: 04/04/2017 8:39 am REASON FOR STUDY: stroke COMPARISON: 04/02/2017, 03/31/2017, 08/15/2015 CT brain TECHNIQUE: Axial images acquired through the brain without intravenous contrast. Images reviewed wi th bone, brain and subdural windows. Images stored on PACS. All CT scanners at this facility use dose modulation, iterative reconstruction, and/or weight based d osing when appropriate to reduce radiation dose to as low as reasonably achievable (ALARA). [facility]: Dose Right [facility]: CareDose [facility]: Dose Right [facility]: Teradose 4D [facility]: [employer] RADIATION DOSE: Up-to-date CT equipment and radiation dose reduction techniques were employed. CTDIv ol: 64.6 mGy. DLP: 1163 mGy-cm. mGy. LIMITATIONS: None. FINDINGS: A large left MCA distribution acute nonhemorrhagic infarct is present, with a large area o f low attenuation throughout the left frontal and temporal lobes. Dense left MCA on axial image 16. No hemorrhagic transformation. There is increasing mass effect, with [id number] subfalcine shift of 15 mm. Entrapment of the rig ht lateral ventricle, with dilatation of the right lateral ventricle temporal horn. There is now left uncal herniation of the temporal lobe flattening the leftward aspect of the brainst em. A small right occipital nonhemorrhagic infarct is now present on axial image 18. Paranasal sinuses, orbits, calvarium unremarkable. This report was communicated to Dr. Infante, 0910 hours, 04/04/2017. IMPRESSION: Increasing mass effect from large left MCA distribution nonhemorrhagic infarct. Evidenc e of entrapment right lateral ventricle. Left uncal herniation. EVIDENCE OF ACUTE STROKE: NO. COMMENT: Quality ID # [id number]: Final reports with documentation of one or more dose reduction techniques (e.g., Automated exposure control, adjustment of the mA and/or kV according to patient size, use of iterative reconstruction technique) TECHNICAL DOCUMENTATION: JOB ID: [id number]- All Rights Reserved
[2017-04-04] MEDS: ASPIRIN/DIPYRIDAMOLE 25-200 MG 1 CAP.SR CPMP.12HR PO SCH ×2 (09:35→23:09)
--- NOTE | 2017-04-04 13:45 | PDOC PROGRESS REPORT ---
Subjective Progress Note for:: 04/04/17 Subjective:: Patient is currently doing same. Patient's CT scan of the head is more worsening with the brain swelling and midline shift. Clinically patient is not responding. Discussed with the patient's family very extensively in the room regarding the CT scan finding and poor prognosis Physical Exam Vital Signs: Temp Pulse Resp BP Pulse Ox 99.3 F 84 22 H 158/137 H 96 04/04/17 07:56 04/04/17 07:56 04/04/17 04:24 04/04/17 07:56 04/04/17 07:56 Intake & Output 04/03/17 04/04/17 04/05/17 06:59 06:59 06:59 Intake Total 21 50 Output Total 425 325 Balance -404 -275 Weight 80.7 kg 80.5 kg Physical Exam: Currently not responding General appearance: PRESENT: no acute distress Head exam: PRESENT: normocephalic Mouth exam: PRESENT: dry mucosa Neck exam: ABSENT: JVD Respiratory exam: PRESENT: clear to auscultation cally Cardiovascular exam: PRESENT: +S1, +S2 GI/Abdominal exam: PRESENT: normal bowel sounds, soft Extremities exam: ABSENT: pedal edema Neurological exam: PRESENT: altered Results Laboratory Results: 04/02/17 14:57 04/02/17 15:40 04/01/17 04/01/17 04/01/17 00:11 00:11 05:59 Creatine Kinase 71 Cancelled CK-MB (CK-2) 1.37 Troponin I 0.043 04/01/17 04/01/17 04/01/17 05:59 06:43 06:43 Creatine Kinase 72 CK-MB (CK-2) Cancelled 1.22 Troponin I Cancelled 0.048 04/01/17 04/01/17 13:11 13:11 Creatine Kinase 78 CK-MB (CK-2) 1.15 Troponin I 0.043 Impressions: Chest X-Ray 03/31/17 15:49 IMPRESSION: No significant interval change. No acute findings. Other findings as noted above Carotid Doppler Study 04/01/17 00:00 IMPRESSION: NO HEMODYNAMICALLY SIGNIFICANT STENOSIS. Head CT 04/04/17 08:00 IMPRESSION: Increasing mass effect from large left MCA distribution nonhemorrhagic infarct. Evidence of entrapment right lateral ventricle. Left uncal herniation. EVIDENCE OF ACUTE STROKE: NO. Assessment & Plan - Diagnosis (1) CVA (cerebral vascular accident) Qualifiers: CVA mechanism: unspecified Qualified Code(s): I63.9 - Cerebral infarction, unspecified Is this a current diagnosis for this admission?: Yes Plan: With the recent CT scan today more worsening the symptoms discussed with the family about the patient's current conditions with a poor prognosis will order the EEG in the morning for the looking for the brain activity and possible comfort care (2) Hemiplegia and hemiparesis following cerebral infarction affecting right dominant side Is this a current diagnosis for this admission?: Yes (3) Hypertensive heart disease Qualifiers: Heart failure presence: without heart failure Qualified Code(s): I11.9 - Hypertensive heart disease without heart failure Is this a current diagnosis for this admission?: Yes Plan: Continues to as needed labetalol - Time Time Spent with patient: 15-24 minutes Medications reviewed and adjusted accordingly: Yes Anticipated discharge: Other Within: Other - Inpatient Certification Medical Necessity: Need Close Monitoring Due to Risk of Patient Decompensation Post Hospital Care: D/C [employer] Documentation - Plan Summary Plan Summary: We will order the EEG for the brain activity continues current supportive treatments very extensive discussed with the patient and all the other family and discuss about all the CT scan finding patient probably put the comfort care after the EEG
[2017-04-05] MEDS: HEPARIN SOD (PORCINE) 5,000 UNIT/ML 1 ML SYRINGE SUBCUT SCH ×3 (05:46→22:29)
[2017-04-05] MEDS: ASPIRIN/DIPYRIDAMOLE 25-200 MG 1 CAP.SR CPMP.12HR PO SCH ×2 (09:08→22:31)
--- NOTE | 2017-04-05 17:52 | PDOC PROGRESS REPORT ---
Subjective Progress Note for:: 04/05/17 Subjective:: Patient is unresponsive, she sustained a large left MCA distribution acute non- hemorrhagic infarct with a large area of low attenuation throughout the left frontal and temporal lobe. There is increasing mass-effect with [id number] shift. Entrapment of the right lateral ventricle with dilation of the right lateral ventricle temporal horn. There is now left uncal herniation of the temporal lobe flattening the left aspect of the brainstem. There is a small right occipital non-hemorrhagic infarct. EEG was done today, results pending I explained to family about the findings of the CAT scan the prognosis is extremely poor I recommend comfort care or hospice care once EEG results are available. Physical Exam Vital Signs: Temp Pulse Resp BP Pulse Ox 99.1 F 105 H 30 H 158/119 H 91 L 04/05/17 15:59 04/05/17 15:59 04/05/17 15:59 04/05/17 15:59 04/05/17 15:59 Intake & Output 04/04/17 04/05/17 04/06/17 06:59 06:59 06:59 Intake Total 50 0 Output Total 325 425 Balance -275 -425 Weight 80.5 kg 79.2 kg General appearance: PRESENT: other - Unresponsive Eye exam: PRESENT: other - The pupil is mid dilated Respiratory exam: PRESENT: clear to auscultation cally Cardiovascular exam: PRESENT: +S1, +S2 Neurological exam: PRESENT: other - Unresponsive, right-sided paralysis Results Laboratory Results: 04/02/17 14:57 04/02/17 15:40 04/01/17 04/01/17 04/01/17 00:11 00:11 05:59 Creatine Kinase 71 Cancelled CK-MB (CK-2) 1.37 Troponin I 0.043 04/01/17 04/01/17 04/01/17 05:59 06:43 06:43 Creatine Kinase 72 CK-MB (CK-2) Cancelled 1.22 Troponin I Cancelled 0.048 04/01/17 04/01/17 13:11 13:11 Creatine Kinase 78 CK-MB (CK-2) 1.15 Troponin I 0.043 Impressions: Chest X-Ray 03/31/17 15:49 IMPRESSION: No significant interval change. No acute findings. Other findings as noted above Carotid Doppler Study 04/01/17 00:00 IMPRESSION: NO HEMODYNAMICALLY SIGNIFICANT STENOSIS. Head CT 04/04/17 08:00 IMPRESSION: Increasing mass effect from large left MCA distribution nonhemorrhagic infarct. Evidence of entrapment right lateral ventricle. Left uncal herniation. EVIDENCE OF ACUTE STROKE: NO. Assessment & Plan - Diagnosis (1) Left acute arterial ischemic stroke, MCA (middle cerebral artery) Is this a current diagnosis for this admission?: Yes (2) Hemiplegia and hemiparesis following cerebral infarction affecting right dominant side Is this a current diagnosis for this admission?: Yes (3) Hypertensive heart disease Qualifiers: Heart failure presence: without heart failure Qualified Code(s): I11.9 - Hypertensive heart disease without heart failure Is this a current diagnosis for this admission?: Yes (4) Diastolic heart failure Qualifiers: Heart failure chronicity: chronic Qualified Code(s): I50.32 - Chronic diastolic (congestive) heart failure Is this a current diagnosis for this admission?: Yes (5) Raised intracranial pressure Is this a current diagnosis for this admission?: Yes
[2017-04-06] MEDS: HEPARIN SOD (PORCINE) 5,000 UNIT/ML 1 ML SYRINGE SUBCUT SCH ×3 (05:59→21:20)
[2017-04-06] MEDS: ASPIRIN/DIPYRIDAMOLE 25-200 MG 1 CAP.SR CPMP.12HR PO SCH ×2 (09:24→21:20)
--- NOTE | 2017-04-06 15:51 | EEG PRO FEE REPORT ---
EEG INTERPRETATION PATIENT NAME: JONATHAN MILNER ROOM#: [id number] ORDER#: [id number] DATE OF STUDY: 04/05/2017 : 1945 REFERRING MD: GRISEL BAPTISTE M.D. DIAGNOSIS: CVA REPORT The background activity consists anywhere from theta to almost near range alpha at times and some super imposed motion artifact again there is a good bit of that. IMPRESSION The record is symmetrical and definitely shows brain wave activity bilaterally all be it somewhat slow at times; indicative of widespread cerebral dysfunction such as from a toxic or metabolic or other generalized cause of cerebral damage. INTERPRETING PHYSICIAN: THI GREER M.D. /: MTEFFT TT: [id number] ID: [id number] /: [id number] TD: [id number] JOB: [id number] cc:Yola TREJO M.D. SWETANG PATEL, M.D. >
--- NOTE | 2017-04-06 19:06 | PDOC PROGRESS REPORT ---
Subjective Progress Note for:: 04/06/17 Subjective:: Patient remained unresponsive, EEG showed minimal brain activity, results discussed with family the next plan of care is hospice Physical Exam Vital Signs: Temp Pulse Resp BP Pulse Ox 99.7 F 79 20 156/88 H 98 04/06/17 16:00 04/06/17 16:00 04/06/17 16:00 04/06/17 16:00 04/06/17 16:00 Intake & Output 04/05/17 04/06/17 04/07/17 06:59 06:59 06:59 Intake Total 0 15 0 Output Total 425 50 Balance -425 15 -50 Weight 79.2 kg 78.6 kg Head exam: PRESENT: other - Unresponsive Respiratory exam: PRESENT: clear to auscultation cally Cardiovascular exam: PRESENT: +S1, +S2 Results Laboratory Results: 04/02/17 14:57 04/02/17 15:40 04/01/17 04/01/17 04/01/17 00:11 00:11 05:59 Creatine Kinase 71 Cancelled CK-MB (CK-2) 1.37 Troponin I 0.043 04/01/17 04/01/17 04/01/17 05:59 06:43 06:43 Creatine Kinase 72 CK-MB (CK-2) Cancelled 1.22 Troponin I Cancelled 0.048 04/01/17 04/01/17 13:11 13:11 Creatine Kinase 78 CK-MB (CK-2) 1.15 Troponin I 0.043 Impressions: Chest X-Ray 03/31/17 15:49 IMPRESSION: No significant interval change. No acute findings. Other findings as noted above Carotid Doppler Study 04/01/17 00:00 IMPRESSION: NO HEMODYNAMICALLY SIGNIFICANT STENOSIS. Head CT 04/04/17 08:00 IMPRESSION: Increasing mass effect from large left MCA distribution nonhemorrhagic infarct. Evidence of entrapment right lateral ventricle. Left uncal herniation. EVIDENCE OF ACUTE STROKE: NO. Assessment & Plan - Diagnosis (1) Left acute arterial ischemic stroke, MCA (middle cerebral artery) Is this a current diagnosis for this admission?: Yes Plan: She has a large stroke, she remained unresponsive EEG showed minimal brain activity, hospice consultation will be obtained, prognosis is extremely poor (2) Hemiplegia and hemiparesis following cerebral infarction affecting right dominant side Is this a current diagnosis for this admission?: Yes (3) Hypertensive heart disease Qualifiers: Heart failure presence: without heart failure Qualified Code(s): I11.9 - Hypertensive heart disease without heart failure Is this a current diagnosis for this admission?: Yes (4) Diastolic heart failure Qualifiers: Heart failure chronicity: chronic Qualified Code(s): I50.32 - Chronic diastolic (congestive) heart failure Is this a current diagnosis for this admission?: Yes (5) Raised intracranial pressure Is this a current diagnosis for this admission?: Yes
[2017-04-07] MEDS: HEPARIN SOD (PORCINE) 5,000 UNIT/ML 1 ML SYRINGE SUBCUT SCH ×3 (05:46→22:03)
[2017-04-07] MEDS: ASPIRIN/DIPYRIDAMOLE 25-200 MG 1 CAP.SR CPMP.12HR PO SCH ×2 (10:05→22:03)
--- NOTE | 2017-04-07 16:16 | PDOC PROGRESS REPORT ---
Subjective Progress Note for:: 04/07/17 Subjective:: Patient was seen by the bedside she remains unresponsive, she was seen by hospice nurse, it was felt that she is not safe to be transferred because there is a chance she could enroute, the family does not want to take that chances they preferred she dies in the hospital. She will be downgraded to medical floor and made comfort care measures. Physical Exam Vital Signs: Temp Pulse Resp BP Pulse Ox 99.4 F 90 24 H 169/113 H 96 04/07/17 15:29 04/07/17 15:29 04/07/17 15:29 04/07/17 15:29 04/07/17 15:29 Intake & Output 04/06/17 04/07/17 04/08/17 06:59 06:59 06:59 Intake Total 15 0 Output Total 170 200 Balance 15 -170 -200 Weight 78.6 kg 77.6 kg Results Laboratory Results: 04/02/17 14:57 04/02/17 15:40 04/01/17 04/01/17 04/01/17 00:11 00:11 05:59 Creatine Kinase 71 Cancelled CK-MB (CK-2) 1.37 Troponin I 0.043 04/01/17 04/01/17 04/01/17 05:59 06:43 06:43 Creatine Kinase 72 CK-MB (CK-2) Cancelled 1.22 Troponin I Cancelled 0.048 04/01/17 04/01/17 13:11 13:11 Creatine Kinase 78 CK-MB (CK-2) 1.15 Troponin I 0.043 Impressions: Chest X-Ray 03/31/17 15:49 IMPRESSION: No significant interval change. No acute findings. Other findings as noted above Carotid Doppler Study 04/01/17 00:00 IMPRESSION: NO HEMODYNAMICALLY SIGNIFICANT STENOSIS. Head CT 04/04/17 08:00 IMPRESSION: Increasing mass effect from large left MCA distribution nonhemorrhagic infarct. Evidence of entrapment right lateral ventricle. Left uncal herniation. EVIDENCE OF ACUTE STROKE: NO. Assessment & Plan - Diagnosis (1) Left acute arterial ischemic stroke, MCA (middle cerebral artery) Is this a current diagnosis for this admission?: Yes (2) Hemiplegia and hemiparesis following cerebral infarction affecting right dominant side Is this a current diagnosis for this admission?: Yes (3) Hypertensive heart disease Qualifiers: Heart failure presence: without heart failure Qualified Code(s): I11.9 - Hypertensive heart disease without heart failure Is this a current diagnosis for this admission?: Yes (4) Diastolic heart failure Qualifiers: Heart failure chronicity: chronic Qualified Code(s): I50.32 - Chronic diastolic (congestive) heart failure Is this a current diagnosis for this admission?: Yes (5) Raised intracranial pressure Is this a current diagnosis for this admission?: Yes
[2017-04-08] MEDS: HEPARIN SOD (PORCINE) 5,000 UNIT/ML 1 ML SYRINGE SUBCUT SCH ×3 (05:16→21:23)
[2017-04-08] MEDS: MORPHINE SULFATE 10 MG/5 ML ORAL SOLUTION UDCUP PO PRN ×3 (09:05→20:23)
[2017-04-08] MEDS: ASPIRIN/DIPYRIDAMOLE 25-200 MG 1 CAP.SR CPMP.12HR PO SCH ×2 (09:23→21:23)
--- NOTE | 2017-04-08 20:45 | PDOC PROGRESS REPORT ---
Subjective Progress Note for:: 04/08/17 Subjective:: Patient is comfort care measures, essentially palliative care, no new issues to address Physical Exam Vital Signs: Temp Pulse Resp BP Pulse Ox 102.6 F H 94 26 H 133/74 H 96 04/08/17 07:49 04/08/17 14:00 04/08/17 07:49 04/08/17 07:49 04/08/17 07:49 Intake & Output 04/07/17 04/08/17 04/09/17 06:59 06:59 06:59 Intake Total 0 10 0 Output Total 170 400 25 Balance -170 -390 -25 Weight 77.6 kg Results Laboratory Results: 04/02/17 14:57 04/02/17 15:40 04/01/17 04/01/17 04/01/17 00:11 00:11 05:59 Creatine Kinase 71 Cancelled CK-MB (CK-2) 1.37 Troponin I 0.043 04/01/17 04/01/17 04/01/17 05:59 06:43 06:43 Creatine Kinase 72 CK-MB (CK-2) Cancelled 1.22 Troponin I Cancelled 0.048 04/01/17 04/01/17 13:11 13:11 Creatine Kinase 78 CK-MB (CK-2) 1.15 Troponin I 0.043 Impressions: Chest X-Ray 03/31/17 15:49 IMPRESSION: No significant interval change. No acute findings. Other findings as noted above Carotid Doppler Study 04/01/17 00:00 IMPRESSION: NO HEMODYNAMICALLY SIGNIFICANT STENOSIS. Head CT 04/04/17 08:00 IMPRESSION: Increasing mass effect from large left MCA distribution nonhemorrhagic infarct. Evidence of entrapment right lateral ventricle. Left uncal herniation. EVIDENCE OF ACUTE STROKE: NO. Assessment & Plan - Diagnosis (1) Left acute arterial ischemic stroke, MCA (middle cerebral artery) Is this a current diagnosis for this admission?: Yes (2) Hemiplegia and hemiparesis following cerebral infarction affecting right dominant side Is this a current diagnosis for this admission?: Yes (3) Hypertensive heart disease Qualifiers: Heart failure presence: without heart failure Qualified Code(s): I11.9 - Hypertensive heart disease without heart failure Is this a current diagnosis for this admission?: Yes (4) Diastolic heart failure Qualifiers: Heart failure chronicity: chronic Qualified Code(s): I50.32 - Chronic diastolic (congestive) heart failure Is this a current diagnosis for this admission?: Yes (5) Raised intracranial pressure Is this a current diagnosis for this admission?: Yes
[2017-04-09 00:12] VITALS: BP 49/37
[2017-04-09] MEDS: MORPHINE SULFATE 10 MG/5 ML ORAL SOLUTION UDCUP PO PRN (00:26)
--- NOTE | 2017-04-09 20:24 | Death Summary ---
Summary Date : 04/09/17 Time of :: 00:40 Autopsy: No Resuscitation Status: Comfort Measures Only - Final Diagnosis (1) Left acute arterial ischemic stroke, MCA (middle cerebral artery) Is this a current diagnosis for this admission?: Yes (2) Hemiplegia and hemiparesis following cerebral infarction affecting right dominant side Is this a current diagnosis for this admission?: Yes (3) Hypertensive heart disease Is this a current diagnosis for this admission?: Yes (4) Diastolic heart failure Is this a current diagnosis for this admission?: Yes (5) Raised intracranial pressure Is this a current diagnosis for this admission?: Yes Hospital Course:: Patient was admitted on 03/31/2017 with right-sided paralysis, initial CAT scan of the head that was done was negative as expected in acute CVA subsequent CAT scan of the head that was done confirmed a large left MCA territory infarct. Patient never regained full consciousness from the different admission, the CVA progress rapidly with herniation of the brain. She was made a DNR status after discussion with family about condition. Family subsequently agreed to hospice hospice consultation was obtained but she was felt to be unsafe for transfer to hospice home, her care was transitioned to comfort care and she today at 0040.
== END 2017-04-09 03:25 | DRG 65 ==
LOC: ER 15:47 → EH 18:12 → UNDOADMIN 18:12 → EH 20:22 → 3W 20:22 → EH 22:58 → 3W 04-01 08:58
PROVIDERS: ADMIT Internal Medicine; ATTEND Internal Medicine
DX: I63.412 Cerebral infarction due to embolism of left middle cerebral artery (principal); G81.91 Hemiplegia, unspecified affecting right dominant side; I50.32 Chronic diastolic (congestive) heart failure; I11.0 Hypertensive heart disease with heart failure; I48.91 Unspecified atrial fibrillation; Z66 Do not resuscitate; Z51.5 Encounter for palliative care; I25.2 Old myocardial infarction; Z79.01 Long term (current) use of anticoagulants; Z95.0 Presence of cardiac pacemaker; Z90.710 Acquired absence of both cervix and uterus; Z88.6 Allergy status to analgesic agent; Z88.1 Allergy status to other antibiotic agents; Z88.8 Allergy status to other drugs, medicaments and biological substances; Z79.899 Other long term (current) drug therapy
CPT/HCPCS: 36415; 70450; 71010; 80048; 80053; 80061; 81001; 82550; 82553; 82962; 84484; 85025; 85027; 85610; 85730; 93005; 93010; 93306; 93880; 99291; G8978-GP; G8979-GP; G8987-GO; G8988-GO; J1644; J3490